=== PATIENT | male | born 1970 | race Caucasian/White ===

== ENCOUNTER → 2020-03-25 | Outpatient (CLI) | payer OTHER ==
[2015-02-19 15:28] VITALS: BP 142/93
--- NOTE | 2020-03-25 16:19 | KCIC ---
MR of the left knee HISTORY: Left knee pain after injury a few months ago. Pain posterior to the patella. TECHNIQUE: Routine multiplanar sequences are obtained. FINDINGS: No evidence of medial meniscal tear. No evidence of lateral meniscal tear. The anterior and posterior cruciate ligaments are intact. Medial collateral ligament is intact. Iliotibial band unremarkable. Fibular collateral ligament, biceps femoris tendon and popliteus tendon are intact. The extensor mechanism is intact. No significant joint effusion. No significant Lane's cyst. Mild generalized chondromalacia with heterogeneity but no focal thinning. Small thin fissure at the medial patellar cartilage facet. No acute fracture. No aggressive bone destruction. No significant Lane's cyst. IMPRESSION: 1. Small medial patellar cartilage fissure. 2. No meniscal tear or other internal derangement. Electronically signed by: Fahad Garcia MD (03/25/2020 4:15 PM) [id number]
== END | disposition home or self-care (01) ==
LOC: KCIC MRI 10:33
PROVIDERS: ATTEND Family Medicine
DX: M94.262 Chondromalacia, left knee (principal)
CPT/HCPCS: 73721